=== PATIENT | female | born 1995 | race Caucasian/White ===

== ENCOUNTER 2024-08-26 04:47 | Day surgery (SDC) | payer BC ==
[2024-08-26 05:16] VITALS: BMI 47.8
[2024-08-26] MEDS ORDERED: hydrALAZINE 20 MG/ML VIAL SLOW IVP PRN (08:58)
== END 2024-08-26 09:31 | disposition home or self-care (01) ==
LOC: CSHLD/OP 04:47
PROVIDERS: ATTEND Obstetrics & Gynecology
DX: O47.1 False labor at or after 37 completed weeks of gestation (principal); O99.213 Obesity complicating pregnancy, third trimester; O43.193 Other malformation of placenta, third trimester; Z67.91 Unspecified blood type, Rh negative; Z79.899 Other long term (current) drug therapy; Z3A.39 39 weeks gestation of pregnancy

== ENCOUNTER 2024-08-26 20:15 | Inpatient (IN) | payer BC ==
[~2024-08-26 20:15] MED LIST: Bupivacaine/Epinephrine 0.25% 30 ML VIAL ONE
[2024-08-26] MEDS ORDERED: fentaNYL 50 mcg/mL 1 mL Vial SLOW IVP PRN (20:47)
[2024-08-26] MEDS ORDERED: Promethazine HCl 25 MG/ML VIAL IM PRN ×2 (20:47→20:56)
[2024-08-26] MEDS ORDERED: hydrALAZINE 20 MG/ML VIAL SLOW IVP PRN (20:47)
[2024-08-26] MEDS ORDERED: Ondansetron PF 4 MG/2 ML Vial IVP PRN ×2 (20:47→20:56)
[2024-08-26] MEDS ORDERED: Lidocaine 1% (PF) 30 ML VIAL SC PRN (20:47)
[2024-08-26] MEDS ORDERED: Acetaminophen 500 MG TAB PO PRN (20:47)
[2024-08-26 20:52] VITALS: BMI 47.6
[2024-08-26] MEDS ORDERED: Acetaminophen 325 MG TAB PO PRN (20:56)
[2024-08-26] MEDS ORDERED: Naloxone HCl 0.4 mg/ml Vial IVP PRN ×2 (20:56)
[2024-08-26] MEDS ORDERED: diphenhydrAMINE 50 MG/ML VIAL IVP PRN (20:56)
[2024-08-26] MEDS ORDERED: Lactated Ringer's 500 ML IV PRN (20:56)
[2024-08-26] MEDS ORDERED: ePHEDrine Sulfate 50 MG/10 ML VIAL SLOW IVP PRN (20:56)
[2024-08-26] MEDS ORDERED: Moisturizing Cream (Eucerin) 113 GM JAR TOP PRN (20:56)
[2024-08-26 20:59] LABS: Hemoglobin 11.2 g/dL (12.0-15.5); Mean Corpuscular Hemoglobin 26.2 pg (27.0-33.0); Mean Corpuscular Volume 81.8 fL (81.6-98.3); Mean Platelet Volume 10.7 fL (7.4-10.4); Platelet Count 254 10x3/uL (150-450); RBC Distribution Width 14.8 % (11.5-14.5); Red Blood Cell (RBC) Count 4.28 10x6/uL (3.90-5.03); White Blood Cell (WBC) Count 11.9 10x3/uL (3.5-10.5)
[2024-08-26] MEDS ORDERED: Lactated Ringer's 1,000 ML IV SCH (21:00)
[2024-08-26] MEDS ORDERED: fentaNYL 2 mcg/Ropivacaine 0.2% Epidural 100 ML CADD EPIDURAL SCH (21:00)
[2024-08-26] MEDS ORDERED: Communication Order-Pharmacy FS SCH (21:00)
[2024-08-26] MEDS ORDERED: Oxytocin 30 units/NS 500 ML 500 ML IV SCH (21:00)
[2024-08-26 21:38] LABS: Hep B Surf Ag - L&D Non-Reactive S/CO (NonReactive)
[2024-08-26 21:40] LABS: Syphilis Antibody Nonreactive (Nonreactive); Syphilis Antibody Index 0.05 S/CO (<1.00 Non-Reactive)
[2024-08-27] MEDS ORDERED: Preparation H Ointment 28 GM TUBE PR PRN (01:23)
[2024-08-27] MEDS ORDERED: Milk Of Magnesia 30 ML UDCUP PO PRN (01:23)
[2024-08-27] MEDS ORDERED: Promethazine HCl 25 MG/ML VIAL IM PRN (01:23)
[2024-08-27] MEDS ORDERED: Bisacodyl 10 MG SUPP PR PRN (01:23)
[2024-08-27] MEDS ORDERED: hydrALAZINE 20 MG/ML VIAL SLOW IVP PRN (01:23)
[2024-08-27] MEDS ORDERED: diphenhydrAMINE 25 MG CAP PO PRN (01:23)
[2024-08-27] MEDS ORDERED: Benzocaine-Menthol 82.5 ML CAN TOP PRN (01:23)
[2024-08-27] MEDS ORDERED: Ondansetron PF 4 MG/2 ML Vial IVP PRN (01:23)
[2024-08-27] MEDS ORDERED: Lanolin Ointment 7 GM TUBE TOP PRN (01:23)
[2024-08-27] MEDS: Boostrix 0.5 ML (Tdap) VIAL (>/=7 yrs of age) IM ONE (04:28)
[2024-08-27] MEDS: Acetaminophen 500 MG TAB PO SCH (04:29)
[2024-08-27] MEDS: Ibuprofen 800 MG TAB PO SCH (05:17)
[2024-08-27] MEDS: Docusate 100 MG CAP PO SCH (08:01)
[2024-08-27] MEDS: Ferrous Sulfate 325 MG TAB PO SCH (08:02)
[2024-08-27] MEDS ORDERED: traMADol HCl 50 MG TAB PO PRN (20:56)
[2024-08-28] MEDS: fentaNYL/Ropivacaine Epidural 100 ML ONE (07:24)
[2024-08-28 07:36] VITALS: BP 135/87; TEMP 97.7
== END 2024-08-28 12:15 | disposition home or self-care (01) | DRG 807 ==
LOC: CSHLD/OP 20:15 → CSHLD 20:47 → UNDOADMIN 08-27 00:30 → CSHLD 08-27 00:30 → CSHPP 08-27 03:50 → CSHLD 08-27 03:50
PROVIDERS: ADMIT Obstetrics & Gynecology; ATTEND Obstetrics & Gynecology
PROC: 10E0XZZ Delivery of Products of Conception, External Approach (ICD-10-PCS; principal; 2024-08-27)
PROC: 0UQMXZZ Repair Vulva, External Approach (ICD-10-PCS; 2024-08-27)
PROC: 3E0234Z Introduction of Serum, Toxoid and Vaccine into Muscle, Percutaneous Approach (ICD-10-PCS; 2024-08-27)
DX: O42.02 Full-term premature rupture of membranes, onset of labor within 24 hours of rupture (principal); Z37.0 Single live birth; Z3A.39 39 weeks gestation of pregnancy; O69.81X0 Labor and delivery complicated by cord around neck, without compression, not applicable or unspecified; O71.82 Other specified trauma to perineum and vulva; O69.89X0 Labor and delivery complicated by other cord complications, not applicable or unspecified; O26.893 Other specified pregnancy related conditions, third trimester; Z67.91 Unspecified blood type, Rh negative
CPT/HCPCS: 36415; 51702; 85027; 85461; 86780; 86850; 86900; 86901; 87340; 90384; 96372; 99285